=== PATIENT | male | born 1995 | race Caucasian/White ===

== ENCOUNTER 2024-08-29 18:11 | Emergency (ER) | payer BC ==
[~2024-08-29] VITALS: Ht 177.8 cm; Wt 87.0 kg
[2024-08-29 18:37] VITALS: O2SAT 98
[2024-08-29 20:10] LABS: BASOPHILS % 0.4 % (0.0-2.0); EOSINOPHILS % 3.9 % (0.0-5.0); HEMATOCRIT. 43.5 % (42.0-52.0); HEMOGLOBIN. 15.2 g/dL (14.0-18.0); LYMPHOCYTES % 16.5 % (20.0-50.0); MEAN CORPUSCULAR HEMOGLOBIN 30.4 pg (28.0-32.0); MEAN CORPUSCULAR HGB CONC 34.8 g/dL (31.0-37.0); MEAN CORPUSCULAR VOLUME 87.3 fL (80.0-94.0); MEAN PLATELET VOLUME 7.7 fl (7.4-10.4); MONOCYTES % 11.4 % (2.0-8.0); NEUTROPHILS % 67.8 % (40.0-76.0); PLATELET 170 x1000/uL (130-400); RED BLOOD CELL COUNT 4.99 mill/uL (4.7-6.1); RED CELL DISTRIBUTION WIDTH 12.9 % (11.6-14.6); WHITE BLOOD COUNT 5.7 x1000/uL (4.5-11.0)
[2024-08-29 20:14] LABS: CHLORIDE 103 mEq/L (98-107); POTASSIUM 4.1 mEq/L (3.5-5.1); SODIUM 138 mEq/L (136-145)
[2024-08-29 20:15] LABS: CALCIUM 9.3 mg/dL (8.7-10.4); CARBON DIOXIDE 30 mEq/L (21-32)
[2024-08-29 20:20] LABS: GLUCOSE 91 mg/dL (70-105); UREA NITROGEN BLOOD 14 mg/dL (9-23)
[2024-08-29] MEDS ORDERED: NAPR220C61 MT (20:49)
[2024-08-29 20:51] LABS: ERYTHROCYTE SEDIMENTATION RATE 5 mm/hr (0-15)
[2024-08-29 20:52] VITALS: BP 135/77; PULSE 89; RESP 16; TEMP 36.39180; O2SAT 100
== END 2024-08-29 20:55 | disposition home or self-care (01) ==
LOC: ER 18:11
DX: R51.9 Headache, unspecified (principal); R63.0 Anorexia; F41.9 Anxiety disorder, unspecified; Z90.89 Acquired absence of other organs
CPT/HCPCS: 36415; 80048; 85025; 85651; 99284

== ENCOUNTER 2025-02-18 16:37 | Emergency (ER) | payer BC ==
[~2025-02-18] VITALS: Ht 177.8 cm; Wt 83.9 kg
[~2025-02-18 16:37] MED LIST: NAPR220C61 MT
[2025-02-18 16:40] VITALS: O2SAT 99
[2025-02-18 16:45] VITALS: BP 141/72; PULSE 89; RESP 18; TEMP 36.9; O2SAT 100
[2025-02-18 17:21] LABS: HEMATOCRIT. 46.8 % (42.0-52.0); HEMOGLOBIN. 15.6 g/dL (14.0-18.0); MEAN CORPUSCULAR HEMOGLOBIN 29.5 pg (28.0-32.0); MEAN CORPUSCULAR HGB CONC 33.3 g/dL (31.0-37.0); MEAN CORPUSCULAR VOLUME 88.6 fL (80.0-94.0); MEAN PLATELET VOLUME 8.4 fl (7.4-10.4); PLATELET 194 x1000/uL (130-400); RED BLOOD CELL COUNT 5.28 mill/uL (4.7-6.1); RED CELL DISTRIBUTION WIDTH 13.6 % (11.6-14.6); WHITE BLOOD COUNT 11.6 x1000/uL (4.5-11.0)
[2025-02-18 17:25] LABS: DIFFERENTIAL COMMENT 1
[2025-02-18 17:26] LABS: CHLORIDE 103 mEq/L (98-107); POTASSIUM 4.8 mEq/L (3.5-5.1); SODIUM 138 mEq/L (136-145)
[2025-02-18 17:27] LABS: CALCIUM 9.9 mg/dL (8.7-10.4); CARBON DIOXIDE 29 mEq/L (21-32)
[2025-02-18 17:31] LABS: PROTHROMBIN TIME 10.8 sec (9.6-11.0)
[2025-02-18 17:32] LABS: GLUCOSE 105 mg/dL (70-105); UREA NITROGEN BLOOD 15 mg/dL (9-23)
[2025-02-18 17:35] LABS: CREATININE 1.4 mg/dL (0.6-1.3)
[2025-02-18 17:46] LABS: ALANINE AMINOTRANSFERASE 19 IU/L (10-49); ASPARTATE AMINOTRANSFERASE 24 IU/L (<34)
[2025-02-18 17:47] LABS: ALBUMIN 4.6 g/dL (3.2-4.8); BILIRUBIN DIRECT 0.2 mg/dL (<=3.0); BILIRUBIN TOTAL 0.6 mg/dL (0.1-1.0); PLATELET ESTIMATE NORMAL; PROTEIN TOTAL 7.7 g/dL (6.0-8.3)
[2025-02-18] MEDS ORDERED: TOPUD PO (18:12)
[2025-02-18] MEDS ORDERED: IBUP-2028 MT (18:12)
[2025-02-18] MEDS ORDERED: LACT1CAP78 MT (18:12)
[2025-02-18] MEDS ORDERED: LOPE2CAP MT (18:12)
[2025-02-18 18:17] LABS: CLARITY URINE CLEAR (CLEAR); COLOR URINE YELLOW (YELLOW); GLUCOSE URINE NEGATIVE (NEGATIVE); KETONES URINE TRACE (NEGATIVE); LEUKOCYTE ESTERASE URINE NEGATIVE (NEGATIVE); NITRITE URINE NEGATIVE (NEGATIVE); OCCULT BLOOD URINE NEGATIVE (NEGATIVE); PH URINE 5.5 (4.5-8.0); PROTEIN URINE NEGATIVE (NEGATIVE); SPECIFIC GRAVITY URINE 1.018 (1.005-1.030); UROBILINOGEN URINE 0.2 E.U./dL (0.2-1.0)
== END 2025-02-18 18:28 | disposition home or self-care (01) ==
LOC: ER 16:37
DX: R19.7 Diarrhea, unspecified (principal); F41.9 Anxiety disorder, unspecified; Z79.899 Other long term (current) drug therapy; Z90.89 Acquired absence of other organs
CPT/HCPCS: 80076; 80048; 81003; 83690; 85025; 85610; 36415; 99283; Z7610

== ENCOUNTER 2025-02-25 12:29 | Emergency (ER) | payer BC ==
[~2025-02-25] VITALS: Ht 177.8 cm; Wt 83.9 kg
[~2025-02-25 12:29] MED LIST changes: +IBUP-2028 MT; +LACT1CAP78 MT; +LOPE2CAP MT; +TOPUD PO
[2025-02-25 12:30] VITALS: BP 120/63; PULSE 80; RESP 14; TEMP 36.6; O2SAT 100; O2SAT 98
[2025-02-25 13:09] LABS: CHLORIDE 104 mEq/L (98-107); POTASSIUM 4.4 mEq/L (3.5-5.1); SODIUM 139 mEq/L (136-145)
[2025-02-25 13:10] LABS: CALCIUM 9.2 mg/dL (8.7-10.4); CARBON DIOXIDE 28 mEq/L (21-32)
[2025-02-25 13:14] LABS: HEMATOCRIT. 44.5 % (42.0-52.0); MEAN CORPUSCULAR HEMOGLOBIN 29.5 pg (28.0-32.0); MEAN CORPUSCULAR HGB CONC 33.8 g/dL (31.0-37.0); MEAN CORPUSCULAR VOLUME 87.2 fL (80.0-94.0); MEAN PLATELET VOLUME 7.9 fl (7.4-10.4); PLATELET 192 x1000/uL (130-400); RED CELL DISTRIBUTION WIDTH 13.5 % (11.6-14.6); WHITE BLOOD COUNT 4.7 x1000/uL (4.5-11.0)
[2025-02-25 13:15] LABS: GLUCOSE 118 mg/dL (70-105); UREA NITROGEN BLOOD 9 mg/dL (9-23)
[2025-02-25 13:17] LABS: ALANINE AMINOTRANSFERASE 26 IU/L (10-49); ALBUMIN 4.2 g/dL (3.2-4.8); ASPARTATE AMINOTRANSFERASE 27 IU/L (<34); BILIRUBIN DIRECT 0.1 mg/dL (<=3.0)
[2025-02-25 13:18] LABS: BILIRUBIN TOTAL 0.5 mg/dL (0.1-1.0); PROTEIN TOTAL 7.4 g/dL (6.0-8.3)
[2025-02-25 13:31] LABS: DIFFERENTIAL COMMENT 1
[2025-02-25] MEDS ORDERED: CIPR750T4 PO (14:37)
[2025-02-25 14:54] LABS: PLATELET ESTIMATE NORMAL
== END 2025-02-25 15:17 | disposition home or self-care (01) ==
LOC: ER 12:29
DX: R19.7 Diarrhea, unspecified (principal); F41.9 Anxiety disorder, unspecified; Z90.89 Acquired absence of other organs; Z79.899 Other long term (current) drug therapy
CPT/HCPCS: 80076; 80048; 83690; 85025; 36415; 74176; 99284; Z7610